=== PATIENT | female | born 1990 | race Two or more races ===

== ENCOUNTER 2017-01-16 11:30 | Inpatient (IN) | payer OTHER ==
[2017-01-16] MEDS ORDERED: BUTORPHANOL TARTRATE 1 MG/ML VIAL IVPB ONE (12:10)
[2017-01-16] MEDS ORDERED: PROMETHAZINE HCL 25 MG/1 ML VIAL IVPUSH ONE (12:10)
[2017-01-16] MEDS ORDERED: SODIUM PHOSPHATE/NA BIPHOS 133 ML ENEMA PR ONE (12:13)
[2017-01-16] MEDS ORDERED: DEXTROSE 5%-LACTATED RINGERS 1,000 ML IV SCH (12:15)
--- NOTE | 2017-01-16 12:27 | HP ---
Past Medical History - Primary Care Physician PCP:: Una Goldberg - Admission Chief Complaint: 26 yrs , 40.3 weeks on set labor pain since 6.00am . admitted in early labor History of Present Illness: [facility] PNWork up : O Pos, Hbsag neg, Rpr nr, Hiv neg, Rubella pos, 2Hr Gtt wnl ( 72, 163, 83) , GBS neg Neg NT Screen & Modified Sequential . sono by [facility] dept,last on 12/16/16, 35 %tile growth, Vx, , Shannon 13.55, Bpp 8/8, EFW 2539 gm . 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 Weeks Gestation by Dates: 40.3 ...EDC by Dates: 01/13/17 ...EDC by Sono: 01/16/17 Heme/Onc: Yes: Anemia Infectious Disease: No: MRSA, STD's Psych: No: Addictions, Anxiety Endocrine: No: Diabetes Mellitus, Hypothyroidism - Past Surgical History Past Surgical History: Yes: None Hx Myomectomy: No Hx Transabdominal Cerclage: No - Smoking History Smoking history: Never smoked Have you smoked in the past 12 months: No Aproximately how many cigarettes per day: 10 - Alcohol/Substance Use Hx Alcohol Use: No History of Substance Use: reports: None - Social History History of Recent Travel: No Home Medications - Allergies Allergies/Adverse Reactions: Allergies Allergy/AdvReac Type Severity Reaction Status Date / Time No Known Allergies Allergy Verified 07/17/16 06:12 - Home Medications Home Medications: Ambulatory Orders Tablet 1 tab-cap PO DAILY 01/16/17 Physical Exam - Maternity Vital Signs: Selected Entries 01/16/17 12:40 Temperature 98.2 F Pulse Rate 78 Respiratory 18 Rate Blood Pressure 124/76 Weight 230 lb Constitutional: Yes: Well Nourished, Mild Distress, Obese Eyes: Yes: WNL HENT: Yes: WNL Neck: Yes: WNL Cardiovascular: Yes: WNL, Regular Rate and Rhythm Lungs: Clear to auscultation Breast(s): Yes: WNL - Abdominal Exam/OB Fundal Height: 38 Number of Fetuses: Single Presentation: Vertex Contractions: Yes Regularity: Irregular (3-6 min) Intensity: Mild/Mod Monitor Mode: External Heart Rate (range): 130 Heart Rate Location: [facility] Category: I Accelerations: Uniform Decelerations: None - Vaginal Exam/OB Vaginal Bleediing: No Speculum Exam: No Dilatation (cm): 1-2 Effacement (%): 70 Amniotic Membrane Status: Intact Presentation: Vertex/Position Station: -3 - Physical Exam Musculoskeletal: Yes: WNL Extremities: Yes: WNL. No: Calf Tenderness Edema: Yes Edema: LLE: 1+, RLE: 1+ Deep Tendon Reflex Grade: Normal +2 Psychiatric: Yes: WNL, Alert, Oriented - Labs Lab Results: Laboratory Tests 01/16/17 01/16/17 01/16/17 12:35 12:35 12:35 WBC 13.3 H D RBC 4.10 Hgb 12.0 D Hct 35.7 Plt Count 184 Neutrophils % 76.4 Lymphocytes % 13.1 D Monocytes % 9.1 Eosinophils % 1.2 INR 0.95 PTT (Actin FS) 26.2 L Sodium 138 Potassium 3.8 Chloride 105 Carbon Dioxide 23 BUN 8 D Creatinine 0.5 L D Random Glucose 85 Calcium 8.6 RPR Titer 01/16/17 12:35 WBC RBC Hgb Hct Plt Count Neutrophils % Lymphocytes % Monocytes % Eosinophils % INR PTT (Actin FS) Sodium Potassium Chloride Carbon Dioxide BUN Creatinine Random Glucose Calcium RPR Titer Nonreactive Problem List - Problems (1) Post-term , 40-42 weeks of gestation Code(s): O48.0 - POST-TERM (2) Labor established Code(s): [id number] - Assessment/Plan 26 yrs 40.3 weeks, in early labor, gbs neg. Plan ; Trial vaginal delivery Pitocin augmentation
[2017-01-16 12:49] VITALS: BMI 40.7
[2017-01-16] MEDS ORDERED: OXYTOCIN 15 UNITS/ LR 250 ML 250 ML IVPB SCH (13:00)
[2017-01-16 13:01] LABS: BASOPHIL 0.2 % (0-2.0); EOSINOPHIL 1.2 % (0-4.5); MCH 29.2 pg (25.7-33.7); MCHC 33.5 g/dl (32.0-36.0); MEAN CELL VOLUME 87.1 fl (80-96); MEAN PLT VOLUME 7.5 fl (7.5-11.1); NEUTROPHILS 76.4 % (42.8-82.8); PLATELET COUNT 184 K/MM3 (134-434); RDW 13.8 % (11.6-15.6); WHITE BLOOD COUNT 13.3 K/mm3 (4.0-10.0)
[2017-01-16 13:26] LABS: CALCIUM 8.6 mg/dL (8.5-10.1); COCKROFT - GAULT 285.736; CREATININE 0.5 mg/dL (0.55-1.02)
[2017-01-16 13:39] LABS: INR 0.95 (0.82-1.09); PROTHROMBIN TIME (PATIENT) 10.4 SEC (9.98-11.88)
[2017-01-16 13:46] LABS: ACTIVATED PTT 26.2 SECONDS (26.9-34.4)
[2017-01-16] MEDS ORDERED: ELECTROLYTE-148 SOLN 1,000 ML IV SCH (18:30)
--- NOTE | 2017-01-16 18:32 | PN ---
Progress Note, Labor Vaginal Exam #1 Labor Exam Date: 01/16/17 Labor Exam Time: 18:20 Heart Rate (range): 140-150 Dilatation: 4 Effacement (%): 70 Amniotic Membrane Status: Intact Presentation: Vertex/Position Station: -2 Remarks: FHR cat-1 UC q2-3 min . pitocin 5 ml/hr pt requests for epidural Vaginal Exam #2 Labor Exam Date: 01/16/17 Labor Exam Time: 19:40 Heart Rate (range): 140 Dilatation: 5 Effacement (%): 80 Amniotic Membrane Status: Ruptured (AROM clear) Presentation: Vertex/Position Station: -2 Remarks: uc q2-3 min , FHR cat-1 epidural completed at 19.00hrs Selected Entries 01/16/17 18:00 Temperature 98.3 F Pulse Rate 81 Blood Pressure 130/72 Vaginal Exam #3 Labor Exam Date: 01/16/17 Labor Exam Time: 20:20 Heart Rate (range): 114-130-140 Dilatation: 5-6 Effacement (%): 80 Amniotic Membrane Status: Ruptured Presentation: Vertex/Position (scalp electrode applied) Station: -2 Remarks: variable decel are noted, FhR cat-2 UC dysfunctional 2-3-4 min Rt lateral position is favorable , O2 given . plan ct trial of labor Selected Entries 01/16/17 19:55 Pulse Rate 97 H Respiratory 20 Rate Blood Pressure 110/83 Vaginal Exam #4 Labor Exam Date: 01/16/17 Labor Exam Time: 21:20 Heart Rate (range): 110-140 Dilatation: 7 Effacement (%): 80 Amniotic Membrane Status: Ruptured Presentation: Vertex/Position Station: -2 (-2/-1) Remarks: fhr cat-2, variable decel with late component sometime Uc dysfunctional 2-5 min Selected Entries 01/16/17 21:25 Pulse Rate 92 H Blood Pressure 107/73 Vaginal Exam #5 Labor Exam Date: 01/16/17 Labor Exam Time: 23:20 Heart Rate (range): 110-130 Dilatation: 9 Effacement (%): 100 Amniotic Membrane Status: Ruptured Presentation: Vertex/Position Station: +1 (0/+1) Remarks: fhe cat-2 uc i2-3 min. Selected Entries 01/16/17 01/16/17 01/16/17 22:00 22:10 22:25 Temperature 98.7 F Pulse Rate 70 71 Blood Pressure 116/[address] trial of labor 23.50 hr pitocin was d/veronica due to recuurent deep decel Vaginal Exam #6 Labor Exam Date: 01/17/17 Labor Exam Time: 00:40 Heart Rate (range): 90-140 Dilatation: 10 Effacement (%): 100 Amniotic Membrane Status: Ruptured Presentation: Vertex/Position Station: +2 (+2/+3) Remarks: fhr cat-2 UC 3-4 min . pt has no urge to push, will wait for passive descent. Selected Entries 01/16/17 23:10 Pulse Rate 78 Blood Pressure 111/60 1.05 am pt was encouraged to push
[2017-01-16] MEDS ORDERED: FENTANYL/BUPIVACAINE/NS/PF - PCEA - 50 ML DISP.SYRIN EP SCH (19:15)
[2017-01-17] MEDS ORDERED: BENZOCAINE 20% 57 GM BOTTLE TP PRN (01:35)
[2017-01-17] MEDS ORDERED: WITCH HAZEL 50% (TUCKS) 40 PAD/JAR PAD TP PRN (01:35)
[2017-01-17] MEDS ORDERED: METHYLERGONOVINE MALEATE 0.2 MG/1 ML AMP IM PRN (01:35)
[2017-01-17] MEDS ORDERED: oxyCODONE HCL 5 MG TABLET PO PRN (01:35)
[2017-01-17] MEDS ORDERED: BISACODYL 10 MG SUPP.RECT RC PRN (01:35)
[2017-01-17] MEDS ORDERED: BENZOCAINE 28 GM HEMORRHOIDAL OINTMENT TP PRN (01:35)
[2017-01-17] MEDS ORDERED: D5W-LR W/ 20 UNITS OXYTOCIN 1,000 ML IV SCH (01:45)
[2017-01-17 01:53] LABS: ARTERIAL BLD GAS O2 SATURATION 23.9 % (90-98.9); ARTERIAL BLOOD GAS BASE EXCESS -4.6 meq/l (-2-2); ARTERIAL BLOOD GAS HCO3 22.3 meq/L (22-26); ARTERIAL BLOOD GAS pH 7.27 (7.35-7.45)
[2017-01-17 01:54] LABS: ARTERIAL BLOOD GAS PO2 18.7 mmHg (80-100)
--- NOTE | 2017-01-17 01:54 | PN ---
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
[2017-01-17 01:55] LABS: VENOUS PH 7.32 (7.32-7.42)
[2017-01-17 01:56] LABS: VENOUS BLOOD GAS HCO3 20.9 meq/L (19-25)
[2017-01-17] MEDS: ACETAMINOPHEN 325 MG TABLET (FP) PO PRN ×2 (06:16→22:23)
[2017-01-17] MEDS: IBUPROFEN 600 MG TABLET (FP) PO PRN ×2 (06:17→22:20)
[2017-01-17] MEDS: PRENATAL VITAMINS W/ FOLIC ACID TABLET (FP) PO SCH (09:38)
[2017-01-17] MEDS: FERROUS SO4 325 MG TABLET (FP) PO SCH ×2 (09:38→17:32)
[2017-01-18] MEDS: FERROUS SO4 325 MG TABLET (FP) PO SCH ×2 (08:35→17:32)
[2017-01-18 08:53] LABS: BASOPHIL 0.5 % (0-2.0); EOSINOPHIL 2.1 % (0-4.5); MCH 28.9 pg (25.7-33.7); MCHC 33.1 g/dl (32.0-36.0); MEAN CELL VOLUME 87.2 fl (80-96); MEAN PLT VOLUME 7.6 fl (7.5-11.1); NEUTROPHILS 70.7 % (42.8-82.8); PLATELET COUNT 156 K/MM3 (134-434); RDW 13.5 % (11.6-15.6); WHITE BLOOD COUNT 13.8 K/mm3 (4.0-10.0)
[2017-01-18] MEDS: PRENATAL VITAMINS W/ FOLIC ACID TABLET (FP) PO SCH (10:51)
--- NOTE | 2017-01-18 11:01 | PN ---
Post Progress Note - Subjective Subjective: no complains Post Day: 1 Type of Delivery: Vital Signs: Vital Signs Temperature 98.4 F 01/17/17 22:00 Pulse Rate 86 01/17/17 22:00 Respiratory Rate 18 01/17/17 22:00 Blood Pressure 125/78 01/17/17 22:00 O2 Sat by Pulse Oximetry (%) 98 01/17/17 02:15 Breast Exam: Yes: Soft. No: Engorged Uterus: Yes: Fundus Firm, Fundus below umbilicus Lochia: Yes: Rubra Lochia, amount: Moderate Extremities: Yes: Calves non-tender Perineum: Yes: Intact Activity: Ambulating - Labs Labs: CBC WBC 13.8 K/mm3 (4.0-10.0) H 01/18/17 07:45 RBC 3.91 M/mm3 (3.60-5.2) 01/18/17 07:45 Hgb 11.3 GM/dL (10.7-15.3) 01/18/17 07:45 Hct 34.1 % (32.4-45.2) 01/18/17 07:45 MCV 87.2 fl (80-96) 01/18/17 07:45 MCHC 33.1 g/dl (32.0-36.0) 01/18/17 07:45 RDW 13.5 % (11.6-15.6) 01/18/17 07:45 Plt Count 156 K/MM3 (134-434) 01/18/17 07:45 MPV 7.6 fl (7.5-11.1) 01/18/17 07:45 Neutrophils % 70.7 % (42.8-82.8) 01/18/17 07:45 Lymphocytes % 17.9 % (8-40) D 01/18/17 07:45 Monocytes % 8.8 % (3.8-10.2) 01/18/17 07:45 Eosinophils % 2.1 % (0-4.5) 01/18/17 07:45 Basophils % 0.5 % (0-2.0) 01/18/17 07:45 Problem List - Problems (1) Post-term , 40-42 weeks of gestation Code(s): O48.0 - POST-TERM (2) Labor established Code(s): [id number] - Assessment/Plan stable. discharge tomorrow.
[2017-01-18] MEDS: IBUPROFEN 600 MG TABLET (FP) PO PRN (14:27)
[2017-01-18] MEDS: ACETAMINOPHEN 325 MG TABLET (FP) PO PRN (14:28)
[2017-01-18] MEDS ORDERED: SENNOSIDES/DOCUSATE COMBO (SENNA PLUS) TABLET (UD) PO PRN (22:00)
[2017-01-18 22:38] VITALS: BP 113/63; PULSE 82
[2017-01-19] MEDS: IBUPROFEN 600 MG TABLET (FP) PO PRN (06:11)
[2017-01-19] MEDS: ACETAMINOPHEN 325 MG TABLET (FP) PO PRN (06:12)
--- NOTE | 2017-01-19 07:34 | DS ---
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 No: Calf Tenderness Edema: LLE: Trace, RLE: Trace Integumentary: Yes: Tattoos Neurological: Yes: WNL ...Motor Strength: WNL Psychiatric: Yes: WNL Labs: CBC, BMP 01/18/17 07:45 01/16/17 12:35 Delivery - Delivery Vaginal Delivery: No Problems, Spontaneous Type of Anesthesia: Epidural Episiotomy/Laceration: None EBL (cc): 250 (parker output 150 ml ) Delivery, Single - Stages of Labor Date 1st Stage Initiatied: 01/16/17 Time 1st Stage Initiated: 06:00 Date 2nd Stage Initiated: 01/17/17 Time 2nd Stage Initiated: 00:40 Date of Delivery: 01/17/17 Time of Delivery: 01:18 Time Placenta Delivered: 01:22 Placenta: Yes: Spontaneous, Uterine Exploration - 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 pp course uneventful. discharge today. Discharge Summary Reason For Visit: LABOR Current Active Problems Labor established (Acute) Normal spontaneous vaginal delivery (Acute) Post-term , 40-42 weeks of gestation (Acute) Condition: Stable - Instructions Diet, Activity, Other Instructions: Post Instructions DIET: Continue good diet high in protein, calcium, and iron rich foods. Drink at least eight (8) glasses of water daily in addition to other fluids. ct Regular diet MEDICATIONS: Continue vitamins and iron as previously directed. Motrin and Tylenol may be taken for minor discomfort. ACTIVITY: Mild to moderate exercise may be started in two (2) weeks. Take frequent rest periods. Resume normal activity after six (6) week check up. WOUND CARE OF OPERATIVE SITE: Continue use of perineal bottle until vaginal discharge stops. Keep area clean. Shower daily. Keep abdominal wound dry. Report any drainage or redness to physician. Tub baths, tampons and douches are not permitted for [address] Breast feeding & or Bottle feeding BREAST CARE: (For those that are not breast feeding): If engorgement occurs: Wear tight fitting bra. Take Tylenol or Motrin for pain. Apply cold packs (ice in bags to each breast ) FAMILY PLANNING: There are many control alternatives to pursue and they should be discussed at your first office visit. You may resume sexual activity after your six (6) week check up. (Remember, breast feeding is not a contraceptive) NEXT PHYSICIAN APPOINTMENT: Be certain to call for a six (6) week appointment, unless otherwise directed. Call Clinic or got to Emergency Dept if you have any of the following: Heavy vaginal bleeding Painful urination Leg pain Unusual odor noted to vaginal bleeding High fever Red streaking noted on breast Referrals: Una Goldberg MD [Staff Physician] - Disposition: HOME - Home Medications Comprehensive Discharge Medication List: Ambulatory Orders Tablet 1 tab-cap PO DAILY 01/16/17 Acetaminophen [Tylenol .Regular Strength -] 650 mg PO Q3H PRN #0 tablet Ibuprofen [Motrin -] 200 mg PO Q4H PRN #0 tablet 01/18/17 Vitamins (Sjr) - 1 tab PO DAILY tablet 01/18/17
[2017-01-19] MEDS: FERROUS SO4 325 MG TABLET (FP) PO SCH (08:33)
[2017-01-19] MEDS: PRENATAL VITAMINS W/ FOLIC ACID TABLET (FP) PO SCH (09:17)
[2017-01-19 11:16] VITALS: TEMP 98.9
== END 2017-01-19 12:00 | disposition home or self-care (01) | DRG 560 ==
LOC: JLDR 11:30 → J3W 01-17 03:30
PROVIDERS: ADMIT Obstetrics & Gynecology; ATTEND Obstetrics & Gynecology
PROC: 10907ZC Drainage of Amniotic Fluid, Therapeutic from Products of Conception, Via Natural or Artificial Opening (ICD-10-PCS; 2017-01-16)
PROC: 10E0XZZ Delivery of Products of Conception, External Approach (ICD-10-PCS; principal; 2017-01-17)
DX: O48.0 Post-term pregnancy (principal); Z3A.40 40 weeks gestation of pregnancy; Z37.0 Single live birth
CPT/HCPCS: 36415; 36600; 59409; 80048; 82803; 85025; 85610; 85730; 86593; 86850; 86900; 86901

== ENCOUNTER 2017-06-28 07:39 | Emergency (ER) | payer OTHER ==
[2017-06-28] MEDS ORDERED: LIDOCAINE HCL 1%, 10 MG/ML (50 mL VIAL) INF ONE (08:03)
[2017-06-28 08:08] VITALS: BP 127/94; PULSE 111; TEMP 98; BMI 35.4
[2017-06-28] MEDS ORDERED: TETANUS AND DIPHTHERIA TOXOID 0.5 ML DISP.SYRIN IM ONE (08:12)
[2017-06-28] MEDS ORDERED: LIDOCAINE HCL 2% (20ML MULTI-DOSE VIAL) NR ONE (08:14)
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
[2017-06-28 09:08] LABS: URINE MARIJUANA THC POSITIVE ng/ml (CUTOFF=50)
[2017-06-28 09:22] LABS: BASOPHIL 0.6 % (0-2.0); EOSINOPHIL 0.3 % (0-4.5); MCH 28.1 pg (25.7-33.7); MCHC 33.1 g/dl (32.0-36.0); MEAN CELL VOLUME 84.8 fl (80-96); MEAN PLT VOLUME 7.9 fl (7.5-11.1); NEUTROPHILS 60.8 % (42.8-82.8); PLATELET COUNT 264 K/MM3 (134-434); RDW 13.3 % (11.6-15.6); WHITE BLOOD COUNT 8.3 K/mm3 (4.0-10.0)
[2017-06-28 09:43] LABS: ALBUMIN 4.3 g/dl (3.4-5.0); ALCOHOL 142.8 mg/dl (0-5); ANION GAP 10 (8-16); BILIRUBIN,TOTAL 0.2 mg/dL (0.2-1.0); CALCIUM 8.9 mg/dL (8.5-10.1); CO2 20 mmol/L (21-32); CREATININE 0.7 mg/dL (0.55-1.02); GLUCOSE,RANDOM 94 mg/dL (74-106); SGOT/AST 22 U/L (15-37); SGPT/ALT 20 U/L (12-78); TOT PROT 7.3 g/dl (6.4-8.2)
[2017-06-28 09:44] LABS: ALK PHOS 58 U/L (45-117); SALICYLATE < 4.0 mg/dl (0.0-30.0)
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
== END 2017-06-28 11:48 | disposition left against medical advice (07) ==
LOC: JER 07:39
PROC: 0JQK0ZZ Repair Left Hand Subcutaneous Tissue and Fascia, Open Approach (ICD-10-PCS; principal; 2017-06-28)
PROC: 3E0234Z Introduction of Serum, Toxoid and Vaccine into Muscle, Percutaneous Approach (ICD-10-PCS; 2017-06-28)
DX: S61.412A Laceration without foreign body of left hand, initial encounter (principal); W25.XXXA Contact with sharp glass, initial encounter; Y04.2XXA Assault by strike against or bumped into by another person, initial encounter; Y93.89 Activity, other specified; Y92.098 Other place in other non-institutional residence as the place of occurrence of the external cause; Y07.03 Male partner, perpetrator of maltreatment and neglect
CPT/HCPCS: 12002-25; 36415; 73130-TC-LT; 73130-TC-RT; 80053; 80307; 84703; 85025; 90471; 90715; 99285-25

== ENCOUNTER 2018-03-18 12:47 | Emergency (ER) | payer OTHER ==
[2018-03-18 13:14] VITALS: BP 110/71; PULSE 88; TEMP 99.3; BMI 30.4
--- NOTE | 2018-03-18 14:05 | PDOC ---
History of Present Illness - General Chief Complaint: Vaginal Sxs Stated Complaint: LAB VARIANCE (PCP SENT) Time Seen by Provider: 03/18/18 13:16 History Source: Patient Exam Limitations: No Limitations - History of Present Illness Initial Comments: 03/18/18 13:45 28 yr female LMP 02/03/18 states she went for termination yesterday and was told no seen in uterus on US, pt here for follow up. Pt states she was told her HCG level was 2500. Pt has no bleeding no cramping or pain. . Followed at [facility] in [place]. Past History - Past Medical History Allergies/Adverse Reactions: Allergies Allergy/AdvReac Type Severity Reaction Status Date / Time No Known Allergies Allergy Verified 03/18/18 13:10 Home Medications: Ambulatory Orders NK [No Known Home Medication] 06/28/17 Asthma: No Cancer: No Cardiac Disorders: No Diabetes: No HTN: No Seizures: No Thyroid Disease: No - Reproductive History (#): 5 Para: 1 Therapeutic (s) & number: Yes (4) - Immunization History Immunization Up to Date: Yes - Suicide/Smoking/Psychosocial Hx Smoking Status: No Smoking History: Current some day smoker Have you smoked in the past 12 months: No Number of Cigarettes Smoked Daily: 10 Cigars Per Day: 0 Information on smoking cessation initiated: Yes 'Breaking Loose' booklet given: 10/22/15 Hx Alcohol Use: No Drug/Substance Use Hx: No Substance Use Type: None Hx Substance Use Treatment: No *Physical Exam - Vital Signs Last Vital Signs Temp Pulse Resp BP Pulse Ox 99.3 F 88 20 110/71 99 03/18/18 13:00 03/18/18 13:00 03/18/18 13:00 03/18/18 13:00 03/18/18 13:00 - Physical Exam General Appearance: Yes: Nourished, Appropriately Dressed HEENT: positive: EOMI, MAGNOLIA Respiratory/Chest: positive: Lungs Clear, Normal Breath Sounds Cardiovascular: positive: Regular Rhythm, Regular Rate Gastrointestinal/Abdominal: positive: Normal Bowel Sounds, Soft. negative: Tender Musculoskeletal: positive: Normal Inspection Extremity: positive: Normal Capillary Refill, Normal Inspection, Normal Range of Motion Integumentary: positive: Normal Color, Dry, Warm Neurologic: positive: cardiology rn II-XII NML intact, Fully Oriented, Alert, Normal Mood/ Affect ED Treatment Course - RADIOLOGY Radiology Studies Ordered: Category Date Time Status TRANSVAGINAL US PREG [US] Stat Ultrasound 03/18/18 13:25 Ordered Medical Decision Making - Medical Decision Making 03/18/18 14:05 cc: r/o ectopic will get labs, transvaginal US pt stable no pain no distress 03/18/18 14:29 *DC/Admit/Observation/Transfer Diagnosis at time of Disposition: Qualifiers: Weeks of gestation: less than 8 weeks Qualified Code(s): Z3A.01 - Less than 8 weeks gestation of - Discharge Dispostion Disposition: HOME Condition at time of disposition: Good - Referrals Referrals: Gama Carlos [Primary Care Provider] - - Patient Instructions Additional Instructions: please follow with your catechist in one week return to ER for any bleeding or abdominal pain or any concerns - Post Discharge Activity
== END 2018-03-18 15:46 | disposition home or self-care (01) ==
LOC: JERFT 12:47
DX: O26.891 Other specified pregnancy related conditions, first trimester (principal); Z3A.01 Less than 8 weeks gestation of pregnancy; F17.210 Nicotine dependence, cigarettes, uncomplicated
CPT/HCPCS: 36415; 76817-TC; 84702; 86850; 86900; 86901; 99281-25

== ENCOUNTER 2018-12-02 04:27 | Emergency (ER) | payer OTHER ==
[2018-12-02 05:01] VITALS: BP 117/86; PULSE 86; TEMP 97.9; BMI 32.8
--- NOTE | 2018-12-02 05:07 | PDOC ---
*Physical Exam - Vital Signs Last Vital Signs Temp Pulse Resp BP Pulse Ox 97.9 F 86 17 117/86 100 12/02/18 04:59 12/02/18 04:59 12/02/18 04:59 12/02/18 04:59 12/02/18 04:59 Medical Decision Making - Medical Decision Making 12/02/18 05:06 Patient seen by the advanced practice provider under my direct supervision. Ancillary testing reviewed as necessary. I agree with plan as outlined by the advanced practice provider. *DC/Admit/Observation/Transfer Diagnosis at time of Disposition: Viral pharyngitis - Discharge Dispostion Disposition: HOME Condition at time of disposition: Stable - Referrals Referrals: Gama Carlos [Primary Care Provider] - Call tomorrow - Patient Instructions Printed Discharge Instructions: Viral Pharyngitis Additional Instructions: gargle with warm salty water take tylenol every 4- 6hours as =needed for pain follow up with your doctor - Post Discharge Activity Forms/Work/School Notes: Back to Work
--- NOTE | 2018-12-02 05:09 | PDOC ---
History of Present Illness - General Chief Complaint: Sore Throat Stated Complaint: THROAT PAIN Time Seen by Provider: 12/02/18 05:05 History Source: Patient - History of Present Illness Initial Comments: 12/02/18 06:01 28 year old female c/o throat pain for the last 2 weeks, son with uri symptoms . denies fever / chills Past History - Past Medical History Allergies/Adverse Reactions: Allergies Allergy/AdvReac Type Severity Reaction Status Date / Time No Known Allergies Allergy Verified 12/02/18 05:01 Home Medications: Ambulatory Orders NK [No Known Home Medication] 06/28/17 Asthma: No Cancer: No Cardiac Disorders: No COPD: No Diabetes: No HTN: No Seizures: No Thyroid Disease: No - Reproductive History (#): 5 Para: 1 Therapeutic (s) & number: Yes (4) - Immunization History Immunization Up to Date: Yes - Suicide/Smoking/Psychosocial Hx Smoking Status: No Smoking History: Never smoked Have you smoked in the past 12 months: No Number of Cigarettes Smoked Daily: 10 Cigars Per Day: 0 Information on smoking cessation initiated: No 'Breaking Loose' booklet given: 10/22/15 Hx Alcohol Use: No Drug/Substance Use Hx: No Substance Use Type: None Hx Substance Use Treatment: No *Physical Exam - Vital Signs Last Vital Signs Temp Pulse Resp BP Pulse Ox 97.9 F 86 17 117/86 100 12/02/18 04:59 12/02/18 04:59 12/02/18 04:59 12/02/18 04:59 12/02/18 04:59 - Physical Exam General Appearance: Yes: Appropriately Dressed HEENT: positive: Normal ENT Inspection, TM Erythema Respiratory/Chest: positive: Lungs Clear, Normal Breath Sounds Cardiovascular: positive: Regular Rhythm, Regular Rate Gastrointestinal/Abdominal: positive: Normal Bowel Sounds, Soft Extremity: positive: Normal Capillary Refill, Normal Inspection, Normal Range of Motion Integumentary: positive: Normal Color, Dry, Warm Neurologic: positive: Fully Oriented, Alert, Normal Mood/Affect Moderate Sedation - Procedure Monitoring Vital Signs: Procedure Monitoring Vital Signs Temperature 97.9 F 12/02/18 04:59 Pulse Rate 86 12/02/18 04:59 Respiratory Rate 17 12/02/18 04:59 Blood Pressure 117/86 12/02/18 04:59 O2 Sat by Pulse Oximetry (%) 100 12/02/18 04:59 Medical Decision Making - Medical Decision Making Pharyngitis P: supportive care pain control rapid strep : negative *DC/Admit/Observation/Transfer Diagnosis at time of Disposition: Viral pharyngitis - Discharge Dispostion Disposition: HOME Condition at time of disposition: Stable - Referrals Referrals: Gama Carlos [Primary Care Provider] - Call tomorrow - Patient Instructions Printed Discharge Instructions: Viral Pharyngitis Additional Instructions: gargle with warm salty water take tylenol every 4- 6hours as =needed for pain follow up with your doctor - Post Discharge Activity Forms/Work/School Notes: Back to Work
[2018-12-02] MEDS ORDERED: ACETAMINOPHEN 325 MG TABLET (FP) PO ONE (05:25)
[2018-12-02] MEDS ORDERED: ACETAMINOPHEN 325 MG TABLET (FP) ONE (05:31)
== END 2018-12-02 06:09 | disposition home or self-care (01) ==
LOC: JER 04:27
DX: J02.9 Acute pharyngitis, unspecified (principal); B97.89 Other viral agents as the cause of diseases classified elsewhere
CPT/HCPCS: 87070; 87880; 99281-25

== ENCOUNTER 2019-01-05 06:18 | Emergency (ER) | payer OTHER ==
[2019-01-05 06:47] VITALS: BP 119/73; PULSE 71; TEMP 97.6; BMI 30.9
[2019-01-05] MEDS ORDERED: LIDOCAINE 5% TOPICAL PATCH TP ONE (07:15)
--- NOTE | 2019-01-05 07:23 | PDOC ---
History of Present Illness <Bertha Braden - Last Filed: 01/05/19 08:54> - General History Source: Patient Exam Limitations: No Limitations - History of Present Illness Initial Comments: 01/05/19 07:21 Pt is a 28yo F with no significant PMH presenting to ED with complaints of R sided neck pain. Pt says that she woke up this morning and was stretching when she pulled a muscle on the R side of her neck. She has been unable to turn her neck to the r side and unable to fully lift her arms up without feeling the pain in her neck. Pain does not radiate. Denies trauma, numbness/tingling, dizziness, changes in vision/hearing, headache, lightheadedness. PMD: Carlos PMH: none PSH: none Meds: none Allergies: nkda Social: denies <Elizabeth Friedman - Last Filed: 01/05/19 08:59> - General Chief Complaint: Head/Neck problem Stated Complaint: R SIDED NECK INJURY Time Seen by Provider: 01/05/19 07:13 Past History <Bertha Braden - Last Filed: 01/05/19 08:54> - Past Medical History Asthma: No Cancer: No Cardiac Disorders: No COPD: No Diabetes: No HTN: No Seizures: No Thyroid Disease: No - Reproductive History (#): 5 Para: 1 Therapeutic (s) & number: Yes (4) - Immunization History Immunization Up to Date: Yes - Suicide/Smoking/Psychosocial Hx Smoking Status: No Smoking History: Never smoked Have you smoked in the past 12 months: No Number of Cigarettes Smoked Daily: 10 Cigars Per Day: 0 'Breaking Loose' booklet given: 10/22/15 Hx Alcohol Use: No Drug/Substance Use Hx: No Substance Use Type: None Hx Substance Use Treatment: No <Elizabeth Friedman - Last Filed: 01/05/19 08:59> - Past Medical History Allergies/Adverse Reactions: Allergies Allergy/AdvReac Type Severity Reaction Status Date / Time No Known Allergies Allergy Verified 12/02/18 05:01 Home Medications: Ambulatory Orders Diazepam [Valium] 5 mg PO Q8H PRN #6 tablet MDD 3 01/05/19 Ibuprofen 600 mg PO QID PRN #20 tablet 01/05/19 Review of Systems - Review of Systems Constitutional: No: Chills, Fever HEENTM: No: Blurred Vision, Double Vision Respiratory: No: Cough, Shortness of Breath Cardiac (ROS): No: Chest Pain, Lightheadedness, Syncope ABD/GI: No: Constipated, Diarrhea, Nausea, Vomiting : No: Symptoms Reported Musculoskeletal: Yes: See HPI, Muscle Pain, Neck Pain. No: Back Pain, Joint Pain, Joint Swelling, Joint Stiffness Integumentary: No: Symptoms Reported Neurological: No: Headache, Numbness, Tingling, Weakness, Ataxia, Dizziness <IdaliaElizabeth - Last Filed: 01/05/19 08:59> *Physical Exam - Vital Signs Last Vital Signs Temp Pulse Resp BP Pulse Ox 97.6 F 71 16 119/73 99 01/05/19 06:45 01/05/19 06:45 01/05/19 06:45 01/05/19 06:45 01/05/19 06:45 <Bertha Braden - Last Filed: 01/05/19 08:54> - Vital Signs Last Vital Signs Temp Pulse Resp BP Pulse Ox 97.6 F 71 16 119/73 99 01/05/19 06:45 01/05/19 06:45 01/05/19 06:45 01/05/19 06:45 01/05/19 06:45 - Physical Exam General Appearance: Yes: Nourished, Appropriately Dressed, Other (head turned to the L, ice pack on R side of neck) HEENT: positive: EOMI, MAGNOLIA, Normal ENT Inspection Neck: positive: Trachea midline, Supple, Decreased range of motion (cannot turn head to R. Tense musculature on R side of neck. ). negative: Tender lateral, Tender midline Respiratory/Chest: positive: Lungs Clear, Normal Breath Sounds. negative: Crackles, Wheezing Cardiovascular: positive: Regular Rhythm, Regular Rate, S1, S2. negative: Murmur Vascular Pulses: Carotid (R): 2+, Carotid (L): 2+, Dorsalis-Pedis (R): 2+, Doralis-Pedis (L): 2+ Gastrointestinal/Abdominal: positive: Normal Bowel Sounds, Soft. negative: Tender Musculoskeletal: positive: Decreased Range of Motion (cannot rotate neck to the R. ). negative: CVA Tenderness, Vertebral Tenderness Extremity: positive: Normal Capillary Refill. negative: Pedal Edema, Swelling Integumentary: positive: Normal Color, Dry, Warm Neurologic: positive: project controls scheduler II-XII NML intact, Fully Oriented, Alert, Normal Mood/ Affect, Normal Response, Motor Strength 5/5 <Elizabeth Friedman - Last Filed: 01/05/19 08:59> ED Treatment Course - Medications Given in the ED: ED Medications Discontinued Medications Generic Name Dose Route Start Last Admin Trade Name Willis PRN Reason Stop Dose Admin Acetaminophen 975 mg 01/05/19 08:19 01/05/19 08:31 Tylenol - PO 01/05/19 08:20 975 mg ONCE ONE Administration Diazepam 2 mg 01/05/19 07:25 01/05/19 07:50 Valium - PO 01/05/19 07:26 2 mg ONCE ONE Administration Diazepam 5 mg 01/05/19 08:17 01/05/19 08:20 Valium - PO 01/05/19 08:18 5 mg ONCE ONE Administration Ketorolac Tromethamine 15 mg 01/05/19 08:18 01/05/19 08:20 Toradol Injection - IM 01/05/19 08:19 15 mg ONCE ONE Administration Lidocaine 1 patch 01/05/19 07:15 01/05/19 07:55 Lidoderm Patch - TP 01/05/19 07:16 1 patch ONCE ONE Administration <BradenBertha - Last Filed: 01/05/19 08:54> Medical Decision Making - Medical Decision Making 01/05/19 07:23 Pt is a 28yo F with no significant PMH presenting to ED with complaints of R sided neck pain. Pt says that she woke up this morning and was stretching when she pulled a muscle on the R side of her neck. She has been unable to turn her neck to the r side and unable to fully lift her arms up without feeling the pain in her neck. Pain does not radiate. Denies trauma, numbness/tingling, dizziness, changes in vision/hearing, headache, lightheadedness. Vitals: wnl PE: neck slightly rotated to L. muscle stiffness/tense on R side of neck. No neurological deficits. ddx includes but not limited to torticollis, muscle strain, vertebral abnormality, vertebral injury low suspicion for spine involvement given lack of trauma, no neurological symptoms. Most likely msk only. -lidoderm patch -valium, toradol, tylenol Will reassess pt feeling better. Stable for dc home. Given return precautions. <Elizabeth Friedman - Last Filed: 01/05/19 08:59> *DC/Admit/Observation/Transfer - Discharge Dispostion Decision to Admit order: No <Bertha Braden - Last Filed: 01/05/19 08:54> - Discharge Dispostion Decision to Admit order: No <Elizabeth Friedman - Last Filed: 01/05/19 08:59> Diagnosis at time of Disposition: Neck pain, Acquired torticollis - Discharge Dispostion Disposition: HOME Condition at time of disposition: Improved - Prescriptions Prescriptions: Diazepam [Valium] 5 mg PO Q8H PRN #6 tablet MDD 3 PRN Reason: Muscle Spasms Ibuprofen 600 mg PO QID PRN #20 tablet PRN Reason: Pain - Referrals Referrals: Gama Carlos [Primary Care Provider] - - Patient Instructions Printed Discharge Instructions: DI for Torticollis Additional Instructions: You were seen in the emergency room for neck pain. It seems like you have torticollis which is pulling of the neck muscles. A prescription has been sent to your pharmacy for a muscle relaxer. Please take as directed. Do not drive, operate machinery or drink alcohol when taking this medication. Take it at bedtime. You can also take Tylenol and ibuprofen for pain as needed. Apply ice or heating pad. Do not lift anything heavy. Please make an appointment with your primary care doctor this week. Come back to the emergency room if pain gets worse, you start having feelings of vertigo, you feel lightheaded, you have numbness/tingling or if any new concerning symptom develops. Thank you - Post Discharge Activity Forms/Work/School Notes: Back to Work
[2019-01-05] MEDS ORDERED: diazePAM 2 MG TABLET PO ONE (07:25)
[2019-01-05] MEDS ORDERED: diazePAM 2 MG TABLET ONE (07:39)
[2019-01-05] MEDS ORDERED: LIDOCAINE 5% TOPICAL PATCH ONE (07:40)
--- NOTE | 2019-01-05 07:41 | PDOC ---
Attending Attestation - Resident Resident Name: IdaliaElizabeth - ED Attending Attestation I have performed the following: I have examined & evaluated the patient, The case was reviewed & discussed with the resident, I agree w/resident's findings & plan - HPI HPI: 01/05/19 07:36 28-year-old healthy female presenting with right-sided neck pain worse with movement sustained after she was stretching this morning in bed. She felt a pull in her muscle subsequently and has been unable to range her neck for look over to the right. No headache, or hearing disturbances, no direct trauma or falls. No numbness tingling or focal weakness. She has not taken anything for pain. No smoking drugs or alcohol use. - Physicial Exam PE: 01/05/19 07:37 NAD, PERRL, EOMI, nl conjunctiva; neck supple, right lateral cervical/SCM/ scalene muscle tenderness, +mild torticollis, unable to turn to right. no midline tenderness. lungs clear, RRR, abdomen soft nontender. VELAZQUEZ x4, no focal neuro deficits. No peripheral edema. normal color for ethnicity, WWP. - Medical Decision Making 01/05/19 07:39 History and physical as documented. Vital signs are reviewed within normal limits. Patient is presenting with right-sided lateral cervical neck tenderness with mild case of torticollis after stretching exercises morning. There is no midline tenderness to suggest cervical or spinal pathology. this is most likely cervical neck spasms of the muscle involving scm and scalenes. +very reproducible lateral cervical neck/muscle tenderness, suggestive of muscular spasms/strain. Neurovascularly intact. We will provide analgesia, Valium and topical Lidoderm patch. Patient is icing over the area with relief of her symptoms advised rest, ice. analgesia, muscle relaxant use as needed for pain control. expectant management x 3-5 days. avoid triggers or further trauma. deep muscle massage and ROM exercises advised. medication side effect reviewed as well, no driving or operating machinery. Pt informed of my clinical impression, treatment recommendations and disposition plan. All questions answered to patient's satisfaction and expressed understanding and comfort with this. Reasons for returning to the ED sooner discussed with the patient otherwise, follow up with primary care physician. At the time of discharge, the patient is alert, clinically improved, tolerating po and verbalizes understanding of instructions. Patient does not suffer from an acute life-threatening medical condition at this time she is safe for outpatient follow-up. 01/05/19 07:41
[2019-01-05] MEDS ORDERED: diazePAM 5 MG TABLET PO ONE (08:17)
[2019-01-05] MEDS ORDERED: KETOROLAC TROMETHAMINE 30 MG/1 ML VIAL IM ONE (08:18)
[2019-01-05] MEDS ORDERED: ACETAMINOPHEN 500 MG TABLET (FP) PO ONE (08:19)
[2019-01-05] MEDS ORDERED: ACETAMINOPHEN 325 MG TABLET (FP) ONE (08:21)
[2019-01-05] MEDS ORDERED: diazePAM 5 MG TABLET ONE (08:21)
[2019-01-05] MEDS ORDERED: KETOROLAC TROMETHAMINE 15 MG/ML VIAL ONE (08:21)
== END 2019-01-05 09:15 | disposition home or self-care (01) ==
LOC: JER 06:18
PROC: 3E0233Z Introduction of Anti-inflammatory into Muscle, Percutaneous Approach (ICD-10-PCS; principal; 2019-01-05)
DX: S16.1XXA Strain of muscle, fascia and tendon at neck level, initial encounter (principal); M43.6 Torticollis; X50.9XXA Other and unspecified overexertion or strenuous movements or postures, initial encounter; Y93.89 Activity, other specified; Y92.038 Other place in apartment as the place of occurrence of the external cause; Y99.8 Other external cause status
CPT/HCPCS: 96372; 99281-25

== ENCOUNTER 2019-05-05 17:26 | Emergency (ER) | payer OTHER ==
--- NOTE | 2019-05-05 17:38 | PDOC ---
Rapid Medical Evaluation Medical Evaluation: Allergies Allergy/AdvReac Type Severity Reaction Status Date / Time No Known Allergies Allergy Verified 12/02/18 05:01 05/05/19 17:33 I have performed a brief in-person evaluation of this patient. The patient presents with a chief complaint of: + preg text at home today. Got menses twice this month. Currently bleeding since 04/23. No abd pain or dysuria Pertinent physical exam findings:stable and well guy I have ordered the following:ua/preg The patient will proceed to the ED for further evaluation. Discharge Disposition - Diagnosis Vaginal bleeding - Referrals - Patient Instructions - Post Discharge Activity
[2019-05-05 17:39] VITALS: BMI 33.5
--- NOTE | 2019-05-05 19:17 | PDOC ---
History of Present Illness - General Chief Complaint: Vaginal Bleeding Stated Complaint: VAGINAL BLEEDING Time Seen by Provider: 05/05/19 17:37 History Source: Patient Exam Limitations: No Limitations - History of Present Illness Travel History: No Initial Comments: 05/05/19 19:14 HISTORY OF PRESENT ILLNESS: This is a 29-year-old woman the LMP 04/24 presents emergency department for evaluation of vaginal bleeding since 04/23. Patient reports she had a positive home test is requesting evaluation of bleeding in early . Patient reports is continued on oral contraception and missed one dose over the past 6 months. Patient reports usually has regular periods coming every 28-30 days and last for 5 days. Patient is concerned that she has had the spotting since 04/23. Patient has been using tampons until today which had a positive test. Patient reports having scant bleeding without clots. Patient reports she has quarter-sized blood stain on her underwear after sleeping which does not soak through and they're to the sheets. No recent travel or sick contacts. PAST MEDICAL HISTORY: G-12, P-2 SURGICAL HISTORY: Denies ALLERGIES: No known drug allergies REVIEW OF SYSTEMS General/Constitutional: Denies fever or chills. Denies weakness, weight change. HEENT: Denies change in vision. Denies ear pain or discharge. Denies sore throat. Cardiovascular: Denies chest pain or shortness of breath. Respiratory: Denies cough, wheezing, or hemoptysis. Gastrointestinal: Denies nausea, vomiting, diarrhea or constipation. Denies rectal bleeding. Genitourinary: see HPI Musculoskeletal: Denies joint or muscle swelling or pain. Denies neck or back pain. Skin and breasts: Denies rash or easy bruising. Neurologic: Denies headache, vertigo, loss of consciousness, or loss of sensation. Psychiatric: Denies depression or anxiety. Endocrine: Denies increased thirst. Denies abnormal weight change. Hematologic/Lymphatic: Denies anemia, easy bleeding, or history of blood clots. Allergic/Immunologic: Denies hives or skin allergy. Denies latex allergy. PHYSICAL EXAM General Appearance: Well-appearing, appropriately dressed. No apparent distress , no intoxication. Respiratory/Chest: Lungs CTAB. No shortness of breath, chest tenderness, respiratory distress, accessory muscle use. No crackles, rales, rhonchi, stridor , wheezing, dullness Cardiovascular: RRR. S1, S2. No JVD, murmur, bradycardia, tachycardia. Gastrointestinal/Abdominal: Normal bowel sounds. Abdomen soft, non-distended. No tenderness or rebound tenderness. No organomegaly, pulsatile mass, guarding, hernia, hepatomegaly, splenomegaly. 05/06/19 01:41 Past History - Past Medical History Allergies/Adverse Reactions: Allergies Allergy/AdvReac Type Severity Reaction Status Date / Time No Known Allergies Allergy Verified 05/05/19 19:13 Home Medications: Ambulatory Orders Mylan 1 tab PO DAILY 05/05/19 Asthma: No Cancer: No Cardiac Disorders: No COPD: No Diabetes: No HTN: No Seizures: No Thyroid Disease: No - Reproductive History (#): 5 Para: 1 Therapeutic (s) & number: Yes (4) - Immunization History Immunization Up to Date: Yes - Suicide/Smoking/Psychosocial Hx Smoking Status: No Smoking History: Current every day smoker Have you smoked in the past 12 months: Yes Number of Cigarettes Smoked Daily: 2 Cigars Per Day: 0 Information on smoking cessation initiated: No 'Breaking Loose' booklet given: 10/22/15 Hx Alcohol Use: No Drug/Substance Use Hx: No Substance Use Type: None Hx Substance Use Treatment: No *Physical Exam - Vital Signs Last Vital Signs Temp Pulse Resp BP Pulse Ox 97.8 F 86 18 130/85 99 05/05/19 17:37 05/05/19 17:37 05/05/19 17:37 05/05/19 17:37 05/05/19 17:37 ED Treatment Course - LABORATORY CBC & Chemistry Diagram: 05/05/19 19:30 05/05/19 19:30 - RADIOLOGY Radiology Studies Ordered: Category Date Time Status TRANSVAGINAL US PREG [US] Stat Ultrasound 05/05/19 19:13 Ordered Medical Decision Making - Medical Decision Making 05/05/19 19:16 A/P: 29-year-old woman with vaginal bleeding in early Labs, transvaginal ultrasounds, urine Reassess 05/05/19 20:25 CBC is unremarkable Chemistries are unremarkable Beta hCG is less than 1. Urine testing is negative. Urinalysis notable for 2+ blood given vaginal bleeding this is normal Transvaginal ultrasound canceled as patient is not . 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 *DC/Admit/Observation/Transfer Diagnosis at time of Disposition: Vaginal bleeding - Discharge Dispostion Disposition: HOME Condition at time of disposition: Stable Decision to Admit order: No - Referrals Referrals: Gama Carlos [Primary Care Provider] - - Patient Instructions Additional Instructions: Your testing was negative and multiple blood in the urine. Follow-up with your ice seller for reevaluation. Return to emergency department for any new or worsening symptoms. Thank you very much for choosing us to provide your emergent care needs. - Post Discharge Activity
[2019-05-05 19:48] LABS: BASO % 0.7 % (0-2.0); EOS % 4.3 % (0-4.5); LYMPH % 38.4 % (8-40); MCH 27.9 pg (25.7-33.7); MCHC 32.5 g/dl (32.0-36.0); MEAN CELL VOLUME 85.8 fl (80-96); MEAN PLT VOLUME 7.9 fl (7.5-11.1); MONO % 7.6 % (3.8-10.2); PLATELET COUNT 280 K/MM3 (134-434); RBC 4.31 M/mm3 (3.60-5.2); RDW 14.1 % (11.6-15.6); WHITE BLOOD COUNT 7.8 K/mm3 (4.0-10.0)
[2019-05-05 20:00] LABS: HYALINE CASTS 1 /lpf (0-8); PH,URINE 5.5 (5.0-8.0); URINE APPEARANCE CLEAR; URINE BACTERIA 38.4 /hpf (NEGATIVE); URINE BILIRUBIN NEGATIVE (NEGATIVE); URINE COLOR YELLOW; URINE GLUCOSE (UA) NEGATIVE (NEGATIVE); URINE KETONE NEGATIVE (NEGATIVE); URINE LEUK ESTERASE NEGATIVE (NEGATIVE); URINE NITRITE NEGATIVE (NEGATIVE); URINE PROTEIN NEGATIVE (NEGATIVE); URINE RBC 4 /hpf (0-4); URINE UROBILINOGEN 0.2 mg/dL (0.2-1.0); URINE WBC 3 /hpf (0-5)
[2019-05-05 20:11] LABS: ANION GAP 8 MMOL/L (8-16); BLOOD UREA NITROGEN 11.6 mg/dL (7-18); CALCIUM 8.9 mg/dL (8.5-10.1); CHLORIDE 107 mmol/L (98-107); CO2 25 mmol/L (21-32); CREATININE 0.7 mg/dL (0.55-1.3); GLUCOSE,RANDOM 140 mg/dL (74-106); SODIUM 139 mmol/L (136-145)
[2019-05-05 20:37] VITALS: BP 120/91; PULSE 67; TEMP 98.1
== END 2019-05-05 20:40 | disposition home or self-care (01) ==
LOC: JER 17:26
DX: N93.9 Abnormal uterine and vaginal bleeding, unspecified (principal); F17.210 Nicotine dependence, cigarettes, uncomplicated
CPT/HCPCS: 36415; 80048; 81003; 84702; 84703; 85025; 86850; 86900; 86901; 99283-25

== ENCOUNTER 2021-12-04 13:38 | Emergency (ER) | payer OTHER ==
[2021-12-04 13:45] VITALS: BP 132/84; PULSE 92; TEMP 98.2; BMI 36.8
[2021-12-04] MEDS ORDERED: predniSONE 10 MG TABLET (UD) ONE (14:17)
[2021-12-04] MEDS ORDERED: predniSONE 20 MG TABLET (UD) ONE (14:18)
[2021-12-04] MEDS ORDERED: predniSONE 20 MG TABLET (UD) PO ONE (14:30)
[2021-12-05] MEDS ORDERED: predniSONE 20 MG TABLET (UD) PO ONE (02:15)
== END 2021-12-04 14:56 | disposition home or self-care (01) ==
LOC: JERFT 13:38
PROC: 3E023GC Introduction of Other Therapeutic Substance into Muscle, Percutaneous Approach (ICD-10-PCS; principal; 2021-12-04)
DX: R21 Rash and other nonspecific skin eruption (principal)
CPT/HCPCS: 96372; 99284-25